=== PATIENT | female | born 1945 | race Caucasian/White ===

== ENCOUNTER 2018-01-07 17:23 | Emergency (ER) | payer MEDICARE, MEDICAID ==
[2018-01-07 18:04] VITALS: BP 118/86
--- NOTE | 2018-01-07 18:26 | UC ---
UC General HPI - HPI Summary HPI Summary: onset yesterday of many episodes of loose yellow watery stools, without vomiting , abdominal pain or fever. Began after eating some Jew potato salad. Has used pepto x 3, without stool passage for the past 2 hours. Prior to that, was almost constantly passing stool--"at least 50 times". Currently feeling hungry. Has voided several times today - History of Current Complaint Chief Complaint: UCGI Stated Complaint: DIARRHEA Time Seen by Provider: 01/07/18 18:15 Hx Obtained From: Patient Onset/Duration: Sudden Onset, Lasting Hours - 24 Onset Severity: Moderate Current Severity: Mild Pain Intensity: 0 Associated Signs & Symptoms: Positive: Diarrhea - Allergy/Home Medications Allergies/Adverse Reactions: Allergies Allergy/AdvReac Type Severity Reaction Status Date / Time ciprofloxacin Allergy Unknown VISION Verified 01/07/18 17:51 CHANGES citalopram [From Celexa] Allergy Unknown Itching Verified 01/07/18 17:47 codeine Allergy Unknown STOMACH Verified 01/07/18 17:48 PAIN haloperidol [From Haldol] Allergy Unknown Itching Verified 01/07/18 17:49 buspirone [From BuSpar] Allergy Anxiety Verified 01/07/18 17:49 Cats Allergy Mild Post-nasal Uncoded 09/26/15 20:11 Drip Dogs Allergy Mild Post-nasal Uncoded 09/26/15 20:11 Drip Dust Allergy Mild Post-nasal Uncoded 09/26/15 20:11 Drip Dust Mites Allergy Mild Post-nasal Uncoded 09/26/15 20:11 Drip Home Medications: Home Medications Bimatoprost 0.01% OPHTH (NF) [Lumigan 0.01% OPHTH (NF)] 1 drop RIGHT EYE QPM [History Confirmed 01/07/18] Bismuth Subsalicylate [Pepto-Bismol Max Strength] 525 mg PO PRN 01/07/18 [ History] PMH/Surg Hx/FS Hx/Imm Hx Previously Healthy: Yes GI/ History: Gastroesophageal Reflux Psychological History: Anxiety, Depression - Surgical History Surgical History: Yes Surgery Procedure, Year, and Place: Cholecystectomy. ankle fracture. tonsillectomy - Family History Known Family History: Positive: Other - breast cancer: mother - Social History Occupation: Retired Lives: Alone Alcohol Use: None Substance Use Type: None Smoking Status (MU): Never Smoked Tobacco Review of Systems Constitutional: Negative Skin: Negative Eyes: Negative ENT: Negative Respiratory: Negative Cardiovascular: Negative Gastrointestinal: Diarrhea Genitourinary: Negative Motor: Negative Neurovascular: Negative Musculoskeletal: Negative Neurological: Negative Psychological: Anxious Is Patient Immunocompromised?: No All Other Systems Reviewed And Are Negative: Yes Physical Exam Triage Information Reviewed: Yes Appearance: Well-Appearing, No Pain Distress, Obese Vital Signs: Initial Vital Signs Temp 97.3 F 01/07/18 17:54 Pulse 80 01/07/18 17:54 Resp 18 01/07/18 17:54 BP 118/86 01/07/18 17:54 Pulse Ox 98 01/07/18 17:54 ENT: Positive: Pharynx normal Neck: Positive: Supple, Nontender, No Lymphadenopathy Respiratory: Positive: Lungs clear, Normal breath sounds Cardiovascular: Positive: RRR, No Murmur. Negative: Tachycardia Abdomen Description: Positive: Nontender, No Organomegaly Bowel Sounds: Positive: Hyperactive Musculoskeletal: Positive: Strength Intact Neurological: Positive: Alert Psychological Exam: Normal Skin Exam: Normal Course/Dx - Course Course Of Treatment: BRAT diet, hydration, pepto or imodium - Differential Dx - Multi-Symptom Differential Diagnoses: Other - enteritis. Provider Diagnoses: enteritis; acute diarrhea. Discharge - Sign-Out/Discharge Documenting (check all that apply): Patient Departure All imaging exams completed and their final reports reviewed: No Studies - Discharge Plan Condition: Stable Disposition: HOME Patient Education Materials: Acute Diarrhea (ED), Nutrition Tips for Relief of Diarrhea (ED) Referrals: Larisa Rosa MD [Primary Care Provider] - Additional Instructions: Continue use of pepto bismol or imodium, and follow tips for a diarrhea diet. Ensure that you stay well hydrated. - Billing Disposition and Condition Condition: STABLE Disposition: Home
== END 2018-01-07 18:45 | disposition home or self-care (01) ==
LOC: UCCORT 17:23
DX: R19.7 Diarrhea, unspecified (principal); K52.9 Noninfective gastroenteritis and colitis, unspecified; Z88.1 Allergy status to other antibiotic agents; Z88.5 Allergy status to narcotic agent; Z88.8 Allergy status to other drugs, medicaments and biological substances; K21.9 Gastro-esophageal reflux disease without esophagitis
CPT/HCPCS: 99211; G0463

== ENCOUNTER 2018-08-29 20:53 | Emergency (ER) | payer MEDICARE, MEDICAID ==
[2018-08-29 21:15] VITALS: BP 136/68
--- NOTE | 2018-08-29 21:31 | UC ---
Cardiac HPI - HPI Summary HPI Summary: 2 days ago was drinking soda and had the sudden onset middle chest dull pain. No nausea or SOB. Burped and passed flatus and felt better. The pain lasted a couple of hours. No radiation into the neck or arm. - History of Current Complaint Stated Complaint: CHEST DISCOMFORT Hx Obtained From: Patient Onset/Duration: Sudden Onset, Lasting Hours - 2, Resolved Initial Severity: Moderate Current Severity: None Pain Intensity: 0 Chest Pain Location: Mid Sternal Character: Dull/Aching Aggravating Factor(s): Other - soda Alleviating Factor(s): Other - "passing gas both ends" Associated Signs & Symptoms: Positive: Chest Pain. Negative: Anxiety, Headaches , Numbness, Tingling, Weakness, Dizziness, SOB, Syncope, Fever, Diaphoresis, Nausea/Vomiting, Palpitations - Risk Factors Pulmonary Embolism Risk Factors: Negative Cardiac Risk Factors: Family History - Allergy/Home Medications Allergies/Adverse Reactions: Allergies Allergy/AdvReac Type Severity Reaction Status Date / Time ciprofloxacin Allergy Unknown VISION Verified 08/29/18 21:10 CHANGES citalopram [From Celexa] Allergy Unknown Itching Verified 08/29/18 21:10 codeine Allergy Unknown STOMACH Verified 08/29/18 21:10 PAIN haloperidol [From Haldol] Allergy Unknown Itching Verified 08/29/18 21:10 buspirone [From BuSpar] Allergy Anxiety Verified 08/29/18 21:10 Cats Allergy Mild Post-nasal Uncoded 08/29/18 21:10 Drip Dogs Allergy Mild Post-nasal Uncoded 08/29/18 21:10 Drip Dust Allergy Mild Post-nasal Uncoded 08/29/18 21:10 Drip Dust Mites Allergy Mild Post-nasal Uncoded 08/29/18 21:10 Drip Home Medications: Home Medications Omeprazole 1 tab DAILY 08/29/18 [History Confirmed 08/29/18] Perphenazine TAB* [Trilafon TAB*] 4 mg DAILY 08/29/18 [History Confirmed ] PMH/Surg Hx/FS Hx/Imm Hx Psychological History: Anxiety - Surgical History Surgical History: Yes Surgery Procedure, Year, and Place: Cholecystectomy. ankle fracture. tonsillectomy - Family History Known Family History: Positive: Cardiac Disease, Other - breast cancer: mother - Social History Occupation: Retired Alcohol Use: None Substance Use Type: None Smoking Status (MU): Never Smoked Tobacco Review of Systems All Other Systems Reviewed And Are Negative: Yes Cardiovascular: Positive: Chest Pain Physical Exam Triage Information Reviewed: Yes Appearance: Well-Appearing, No Pain Distress, Obese Vital Signs: Initial Vital Signs Temp 97.1 F 08/29/18 21:04 Pulse 78 08/29/18 21:04 Resp 20 08/29/18 21:04 BP 136/68 08/29/18 21:04 Pulse Ox 97 08/29/18 21:04 Vital Signs Reviewed: Yes Eyes: Positive: Conjunctiva Clear Neck exam: Normal Respiratory Exam: Normal Cardiovascular Exam: Normal Musculoskeletal Exam: Normal Neurological Exam: Normal Psychological Exam: Normal Skin Exam: Normal - Differential Diagnoses - Chest Pain Differential Diagnosis/HQI/PQRI: Acute [place], Angina, Chest Wall, GI Disease - Clinical Impression Provider Diagnosis: Other chest pain Discharge - Sign-Out/Discharge Documenting (check all that apply): Patient Departure All imaging exams completed and their final reports reviewed: No Studies - Discharge Plan Condition: Stable Disposition: HOME Patient Education Materials: Chest Pain (ED) Referrals: Larisa Rosa MD [Primary Care Provider] - - Billing Disposition and Condition Condition: STABLE Disposition: Home
== END 2018-08-29 21:40 | disposition home or self-care (01) ==
LOC: UCCORT 20:53
DX: R07.89 Other chest pain (principal); F41.9 Anxiety disorder, unspecified; Z88.1 Allergy status to other antibiotic agents; Z88.5 Allergy status to narcotic agent; Z88.8 Allergy status to other drugs, medicaments and biological substances; Z91.048 Other nonmedicinal substance allergy status
CPT/HCPCS: 93005; 99211; G0463

== ENCOUNTER 2023-11-06 12:50 | Observation (INO) ==
[2023-11-06] MEDS: ceFAZolin 2 GM PREMIX 2 GM/50 ML BAG IV SCH (00:05)
[~2023-11-06 12:50] MED LIST: Naloxone 0.4 mg VIAL 0.4 mg/ml 1 ml VIAL IV PRN; Ondansetron 4 mg VIAL 2 MG/ML 2 ml VIAL IV PRN; fentaNYL 100 mcg/2 ml 50 MCG/ML VIAL IV PRN
[2023-11-06] MEDS ORDERED: Famotidine IV 10 MG/ML 2 ml VIAL (20 mg) ONE (13:44)
[2023-11-06] MEDS ORDERED: ceFAZolin 2 GM PREMIX 2 GM/50 ML BAG ONE (13:44)
[2023-11-06] MEDS ORDERED: Tranexamic Acid 1 GM/100ML BAG 2,000 MG/200 ML BAG IV ONE (13:44)
[2023-11-06 13:57] LABS: Rapid COVID-19 Molecular Undetected (Undetected)
[2023-11-06] MEDS: Famotidine IV 10 MG/ML 2 ml VIAL (20 mg) IV ONE (14:00)
[2023-11-06 14:28] LABS: Hematocrit 40.3 % (35-45); Hemoglobin 13.8 g/dL (11.5-14.3); Mean Corpuscular Hemoglobin 30.8 pg (27-33); Mean Corpuscular Hgb Conc 34.3 g/dL (31-36); Mean Corpuscular Volume 89.6 fL (80-97); Mean Platelet Volume 9.3 fL (7.5-11.2); Platelet Count 160 10^3/uL (150-450); Red Cell Distribution Width 14.1 % (12-17); White Blood Count 6.6 10^3/uL (3.8-11.8)
[2023-11-06] MEDS ORDERED: Dexamethasone IV 4 MG/ML VIAL 1 ml VIAL ONE ×2 (14:44→15:10)
[2023-11-06] MEDS ORDERED: ROPIVACAINE 5 MG/ML 30 ML BTL (0.5%) ONE (14:44)
[2023-11-06] MEDS ORDERED: Midazolam 2 mg/2 ml VIAL 1 mg/ml 2 ml VIAL (2 mg) ONE (14:44)
[2023-11-06] MEDS ORDERED: fentaNYL 250 mcg/5 ml 50 MCG/ML 5 ml VIAL (250 MCG) ONE (15:10)
[2023-11-06] MEDS ORDERED: Ondansetron 4 mg VIAL 2 MG/ML 2 ml VIAL ONE (15:10)
[2023-11-06] MEDS ORDERED: Propofol 10 MG/ML 20 ML BTL ONE (15:10)
[2023-11-06] MEDS ORDERED: Lidocaine 2% PF 5 ML VIAL ONE (15:10)
[2023-11-06 15:13] LABS: Calcium 9.5 mg/dL (8.6-10.3); Creatinine, Serum 0.75 mg/dL (0.51-0.95); Potassium 4.2 mmol/L (3.5-5.0); eGFR CKD-EPI 82.5 (>60)
[2023-11-06] MEDS ORDERED: Acetaminophen IV 1 GM/100ML 1,000 MG/100 ML BAG IV ONE (15:56)
[2023-11-06] MEDS ORDERED: Ondansetron 4 mg VIAL 2 MG/ML 2 ml VIAL IV PRN (16:35)
[2023-11-06] MEDS ORDERED: Morphine 2 MG/ML SYRINGE IV PRN (16:35)
[2023-11-06] MEDS ORDERED: Ondansetron ODT 4 mg TAB 4 MG TAB PO PRN (16:35)
[2023-11-06] MEDS ORDERED: Calcium Carb (TUMS) 500 mg CHEW TAB PO PRN (16:35)
[2023-11-06] MEDS ORDERED: Magnesium Hydroxide LIQ 30 ML UDC PO PRN (16:35)
[2023-11-06] MEDS ORDERED: Lactulose 30 ml UDC PO PRN (16:35)
[2023-11-06] MEDS ORDERED: ceFAZolin 2 GM in NS PREMIX 2 GM/100 ML BAG IVPB SCH (17:00)
[2023-11-06] MEDS ORDERED: HYDROmorphone 0.5 MG/0.5 ML SYRINGE ONE (17:16)
[2023-11-06] MEDS: Lactated Ringers 1000 ml BAG 1,000 ML IV SCH ×2 (20:44→20:45)
[2023-11-06] MEDS: Buffered Lidocaine 1% SYRIN 1 ml INTRADERM ONE (20:44)
[2023-11-06] MEDS: Magnesium Hydroxide LIQ 30 ML UDC PO SCH (21:56)
[2023-11-06] MEDS: Timolol 0.25% OPHTH.SOLN BTL RIGHT EYE SCH (22:01)
[2023-11-06] MEDS: PTO:Bimatoprost 0.01% OPHTH (NF) 2.5 ML BTL RIGHT EYE SCH (23:53)
[2023-11-07 06:04] LABS: Hematocrit 40.1 % (35-45); Hemoglobin 13.5 g/dL (11.5-14.3); Mean Platelet Volume 9.7 fL (7.5-11.2); Platelet Count 172 10^3/uL (150-450)
[2023-11-07 06:38] LABS: Calcium 8.7 mg/dL (8.6-10.3); Creatinine, Serum 0.81 mg/dL (0.51-0.95); Potassium 3.9 mmol/L (3.5-5.0); eGFR CKD-EPI 75.2 (>60)
[2023-11-07] MEDS: CEVIMELINE 30 MG PO SCH (08:22)
[2023-11-07] MEDS: CMCS: Perphenazine 8 mg TAB (NF) PO SCH (08:24)
[2023-11-07] MEDS: Vitamin THERAPEUTIC TAB PO SCH (08:25)
[2023-11-07 14:31] VITALS: BP 143/75
== END 2023-11-07 16:00 | disposition home or self-care (01) ==
LOC: OR 12:50 → SSU 12:50
PROVIDERS: ADMIT Orthopaedic Surgery Adult Reconstructive Orthopaedic Surgery; ATTEND Orthopaedic Surgery Adult Reconstructive Orthopaedic Surgery